=== PATIENT | male | born 1960 | race Asian ===

== ENCOUNTER 2016-09-07 07:53 | Inpatient (IN) | payer BC ==
[~2016-09-07] VITALS: Ht 177.8 cm; Wt 77.1 kg
[2016-09-07] MEDS ORDERED: ASPIRIN 81 MG TAB.CHEW ONE (08:14)
[2016-09-07 08:20] LABS: BASOPHILS % (AUTO) 0.3 % (0.0-2.0); DIFF TOTAL % 100 %; EOSINOPHILS % (AUTO) 0.1 % (0.0-6.0); HEMATOCRIT 45 % (39-51); LYMPHOCYTES # (AUTO) 3.3 /CMM (0.8-4.8); LYMPHOCYTES % (AUTO) 25.2 % (20.0-44.0); MEAN CORPUSCULAR HEMOGLOBIN 30 PG (26.0-33.0); MEAN CORPUSCULAR HGB CONC 34 g/dl (31.0-36.0); MEAN CORPUSCULAR VOLUME 90 fL (80-96); MONOCYTES # (AUTO) 1.1 /CMM (0.1-1.30); MONOCYTES % (AUTO) 8.5 % (2.0-12.0); NEUTROPHILS # (AUTO) 8.7 /CMM (1.8-8.9); NEUTROPHILS % (AUTO) 65.9 % (43.0-81.0); RED BLOOD CELL COUNT(AUTO) 4.96 MIL/uL (4.5-6.0); WHITE BLOOD COUNT (AUTO) 13.2 K/uL (4.3-11.0)
[2016-09-07] MEDS ORDERED: ASPIRIN 81 MG TAB.CHEW PO ONE (08:30)
[2016-09-07] MEDS ORDERED: LIDOCAINE VISCOUS 2% UD 15 ML UDC MM ONE (08:30)
[2016-09-07] MEDS ORDERED: MAG HYDROX/AL HYDROX/SIMETH 30 ML UDC PO ONE (08:30)
[2016-09-07 08:34] LABS: INR 0.95 (0.87-1.13); PROTHROMBIN TIME 10.3 SECS (9.5-12.7)
[2016-09-07 08:35] LABS: CALCIUM, SERUM 8.8 mg/dL (8.5-10.1)
[2016-09-07 08:40] LABS: ALBUMIN 3.8 g/dL (3.4-5.0); BILIRUBIN,DIRECT 0.1 mg/dL (0.0-0.2); BILIRUBIN,TOTAL 0.4 mg/dL (0.2-1.0); INDIRECT BILIRUBIN 0.3 mg/dL (0.0-1.1); TOTAL PROTEIN, SERUM 6.9 g/dL (6.4-8.2)
[2016-09-07 08:42] LABS: TROPONIN I 0.052 ng/mL (0.00-0.056)
[2016-09-07 08:54] LABS: PLATELET COUNT (AUTO) 175 /CMM (150-450)
[2016-09-07 08:57] LABS: BAND % (MANUAL) 3 % (0.0-5.0); LYMPHOCYTES % (MANUAL) 27 % (16-48); PLATELET ESTIMATE PLATELET CLUMPS SEEN
[2016-09-07] MEDS ORDERED: MARA150T PO (09:16)
[2016-09-07] MEDS ORDERED: RALT400T PO (09:16)
[2016-09-07] MEDS ORDERED: MELO-264 PO (09:16)
[2016-09-07] MEDS ORDERED: RITO100T PO (09:16)
[2016-09-07] MEDS ORDERED: DARU600T4 PO (09:16)
[2016-09-07] MEDS ORDERED: NITROGLYCERIN 0.4 MG/TAB BOTTLE ONE (10:25)
[2016-09-07] MEDS ORDERED: NITROGLYCERIN 0.4 MG/TAB BOTTLE SL ONE (10:30)
[2016-09-07] MEDS ORDERED: HYDROCODONE/APAP 5/325MG 1 EACH TABLET PO PRN (11:30)
[2016-09-07] MEDS ORDERED: MAG HYDROX/AL HYDROX/SIMETH 30 ML UDC PO PRN (11:30)
[2016-09-07] MEDS ORDERED: ACETAMINOPHEN 325 MG TABLET PO PRN (11:30)
[2016-09-07] MEDS ORDERED: LORAZEPAM 1 MG TABLET PO PRN (11:30)
[2016-09-07] MEDS ORDERED: Z GUARD REMEDY 2 OZ OINT TP PRN (11:30)
[2016-09-07] MEDS ORDERED: MAGNESIUM HYDROXIDE 30 ML UDC PO PRN (11:30)
[2016-09-07] MEDS ORDERED: NITROGLYCERIN 0.4 MG/TAB BOTTLE SL PRN (11:30)
[2016-09-07] MEDS ORDERED: SODIUM CHLORIDE IJ SCH (11:30)
[2016-09-07] MEDS ORDERED: ZOLPIDEM TARTRATE 5 MG TABLET PO PRN (11:30)
[2016-09-07] MEDS ORDERED: ONDANSETRON HCL/PF 4 MG/2 ML VIAL IVP PRN (11:30)
[2016-09-07] MEDS ORDERED: DOCUSATE SODIUM 100 MG CAPSULE PO PRN (11:30)
[2016-09-07 12:00] VITALS: BP 129/76
[2016-09-07] MEDS ORDERED: IV SET PRIMARY PUMP SET 1 EA INFUS.SET MC ONE (15:45)
[2016-09-07 15:52] VITALS: BP 119/74
[2016-09-07 16:00] VITALS: BP 119/74
[2016-09-07] MEDS: IV NS 0.9% 1,000 ML IV PRN (16:02)
[2016-09-07] MEDS: RITONAVIR 100 MG CAPSULE PO SCH (18:18)
[2016-09-07] MEDS: RALTEGRAVIR POTASSIUM 400 MG TABLET PO SCH (18:18)
[2016-09-07 21:09] VITALS: BP 115/69
[2016-09-08 00:32] VITALS: BP 119/71
[2016-09-08 04:12] VITALS: BP 114/80
[2016-09-08] MEDS: IV NS 0.9% 1,000 ML IV PRN (04:56)
[2016-09-08 06:57] VITALS: BP 135/58
[2016-09-08] MEDS ORDERED: PANTOPRAZOLE 40 MG TABLET.DR PO SCH (07:30)
[2016-09-08 08:00] VITALS: BP 135/58
[2016-09-08 08:19] LABS: CALCIUM, SERUM 8.2 mg/dL (8.5-10.1); CREATININE 0.9 mg/dL (0.6-1.3); PHOSPHORUS 3.7 mg/dL (2.5-4.9); POTASSIUM 4.2 mmol/L (3.5-5.1)
[2016-09-08] MEDS ORDERED: MELOXICAM 7.5 MG TABLET PO SCH (09:00)
[2016-09-08] MEDS ORDERED: ASPIRIN 81 MG TAB.CHEW PO SCH (09:00)
[2016-09-08 09:48] LABS: BASOPHILS % (AUTO) 0.3 % (0.0-2.0); DIFF TOTAL % 100 %; EOSINOPHILS # (AUTO) 0.1 /CMM (0.0-0.7); EOSINOPHILS % (AUTO) 0.5 % (0.0-6.0); HEMATOCRIT 47 % (39-51); HEMOGLOBIN 15.4 g/dL (13.5-17.5); LYMPHOCYTES # (AUTO) 3.9 /CMM (0.8-4.8); LYMPHOCYTES % (AUTO) 31.6 % (20.0-44.0); MEAN CORPUSCULAR HEMOGLOBIN 30 PG (26.0-33.0); MEAN CORPUSCULAR HGB CONC 33 g/dl (31.0-36.0); MEAN CORPUSCULAR VOLUME 91 fL (80-96); MONOCYTES % (AUTO) 8.1 % (2.0-12.0); NEUTROPHILS # (AUTO) 7.4 /CMM (1.8-8.9); NEUTROPHILS % (AUTO) 59.5 % (43.0-81.0); RED BLOOD CELL COUNT(AUTO) 5.17 MIL/uL (4.5-6.0); WHITE BLOOD COUNT (AUTO) 12.4 K/uL (4.3-11.0)
[2016-09-08 10:25] LABS: PLATELET COUNT (AUTO) 94 /CMM (150-450)
[2016-09-08] MEDS ORDERED: CT SWABBABLE VALVE TRANS SET 1 EA INFUS.SET MC ONE (10:26)
[2016-09-08] MEDS ORDERED: IV NS 0.9% 250 ML IV ONE (10:26)
[2016-09-08] MEDS ORDERED: IOHEXOL-350 100 ML VIAL IV ONE (10:26)
[2016-09-08 10:53] LABS: LYMPHOCYTES % (MANUAL) 40 % (16-48)
[2016-09-08 10:56] LABS: PLATELET ESTIMATE PLATELET CLUMPS SEEN
[2016-09-08] MEDS ORDERED: NITROGLYCERIN 4.9 GM SPRAY ONE (11:43)
[2016-09-08 12:00] VITALS: BP 138/84
[2016-09-08] MEDS: RITONAVIR 100 MG CAPSULE PO SCH ×2 (12:30→16:46)
[2016-09-08] MEDS: RALTEGRAVIR POTASSIUM 400 MG TABLET PO SCH ×2 (12:36→16:46)
[2016-09-08 16:00] VITALS: BP 128/79
[2016-09-08] MEDS ORDERED: DARUNAVIR ETHANOLATE 600 MG PO SCH (16:00)
== END 2016-09-08 18:00 | disposition home or self-care (01) | DRG 392 ==
LOC: ER 07:55 → TELE 10:26 → MED 09-08 14:31
PROVIDERS: ADMIT Internal Medicine; ATTEND Internal Medicine
DX: K21.9 Gastro-esophageal reflux disease without esophagitis (principal); D72.829 Elevated white blood cell count, unspecified; Z87.891 Personal history of nicotine dependence
CPT/HCPCS: 36415; 71010-TC; 75574; 80048-TC; 80061-TC; 80076-TC; 83735-TC; 84100-TC; 84484-TC; 85025-TC; 85730-TC; 87081-TC; 93307-TC; A4606; A6402; J7030; J7050; Q9967; Z7610

== ENCOUNTER 2017-01-28 07:56 | Inpatient (IN) | payer BC ==
[~2017-01-28] VITALS: Ht 177.8 cm; Wt 79.4 kg
[~2017-01-28 07:56] MED LIST: DARU600T4 PO; MARA150T PO; MELO-264 PO; RALT400T PO; RITO100T PO
[2017-01-28] MEDS ORDERED: ONDANSETRON HCL/PF 4 MG/2 ML VIAL ONE (08:18)
[2017-01-28] MEDS ORDERED: MORPHINE SULFATE INJ 10 MG/ML DISP.SYRIN ONE (08:19)
--- NOTE | 2017-01-28 08:20 | NUR ---
PATIENT PRESENT TO ER C/O SEVERE LOWER MEDIAL ABDOMINAL PAIN. PATIENT IS A/OX 4, BREATHING EVEN AND UNLABORED. NO SOB. VITALS STABLE. SAFETY AND COMFORT MEASURES IN PLACE. AWAITING MD ORDERS.
[2017-01-28 08:22] LABS: APPEARANCE,URINE SL CLOUDY (CLEAR); BILIRUBIN,URINE NEGATIVE (NEGATIVE); BLOOD, URINE NEGATIVE Ery/uL (NEGATIVE); COLOR,URINE YELLOW (YELLOW); KETONES,URINE NEGATIVE (NEGATIVE); LEUKOCYTE ESTERASE ,URINE NEGATIVE (NEGATIVE); NITRITE, URINE NEGATIVE (NEGATIVE); PROTEIN,URINE NEGATIVE (NEGATIVE); UGLUCOSE NEGATIVE (NEGATIVE); UROBILINOGEN,URINE 0.2 EU/dL (0.2)
[2017-01-28 08:24] LABS: BASOPHILS % (AUTO) 0.2 % (0.0-2.0); EOSINOPHILS % (AUTO) 0.2 % (0.0-6.0); HEMATOCRIT 48 % (39-51); HEMOGLOBIN 16.1 g/dL (13.5-17.5); LYMPHOCYTES # (AUTO) 2.8 /CMM (0.8-4.8); LYMPHOCYTES % (AUTO) 18.1 % (20.0-44.0); MEAN CORPUSCULAR HEMOGLOBIN 31 PG (26.0-33.0); MEAN CORPUSCULAR HGB CONC 34 g/dl (31.0-36.0); MEAN CORPUSCULAR VOLUME 92 fL (80-96); MONOCYTES # (AUTO) 0.5 /CMM (0.1-1.30); MONOCYTES % (AUTO) 3.1 % (2.0-12.0); NEUTROPHILS # (AUTO) 12.2 /CMM (1.8-8.9); NEUTROPHILS % (AUTO) 78.4 % (43.0-81.0); PLATELET COUNT (AUTO) 254 /CMM (150-450); RDW COEFFICIENT OF VARIATION 12.9 (11.5-15.0); RED BLOOD CELL COUNT(AUTO) 5.23 MIL/uL (4.5-6.0); WHITE BLOOD COUNT (AUTO) 15.6 K/uL (4.3-11.0)
--- NOTE | 2017-01-28 08:25 | NUR ---
NEW IV STARTED ON LEFT AC, 20 G. BLOOD DRAWN AND SENT TO LAB.
--- NOTE | 2017-01-28 08:28 | NUR ---
PATIENT TAKEN TO CT VIA STRETCHER.
[2017-01-28 08:30] LABS: CALCIUM, SERUM 9.1 mg/dL (8.5-10.1); CREATININE 1.1 mg/dL (0.6-1.3)
[2017-01-28] MEDS ORDERED: MORPHINE SULFATE INJ 2 MG/ML DISP.SYRIN IV ONE (08:30)
[2017-01-28] MEDS ORDERED: IV NS 0.9% 1,000 ML BAG IV ONE (08:30)
[2017-01-28] MEDS ORDERED: ONDANSETRON HCL/PF 4 MG/2 ML VIAL IVP ONE (08:30)
--- NOTE | 2017-01-28 08:32 | NUR ---
PATIENT RETURNED FROM CT.
--- NOTE | 2017-01-28 09:07 | NUR ---
dr mariel enriquez paged for surgical consult
--- NOTE | 2017-01-28 09:22 | NUR ---
panel gauge controller paged
[2017-01-28] MEDS ORDERED: MIDAZOLAM HCL 2 MG/2ML VIAL ONE (09:23)
[2017-01-28] MEDS ORDERED: MIDAZOLAM HCL 2 MG/2ML VIAL IV ONE (09:30)
--- NOTE | 2017-01-28 09:42 | NUR ---
14 FR NG tube inserted through the left nares correct positioning varified by auscultation and x-ray pending. Pt breathing normally and speaking in full sentences immediately after insertion. Vitals stable. Per MD connect to LIS once placement confirmed by KUB.
[2017-01-28] MEDS ORDERED: DIATR MEGLU/DIATRIZOATE SODIUM 30 ML BOTTLE (GASTROGRAPHIN) ONE (09:53)
--- NOTE | 2017-01-28 10:00 | NUR ---
MAIL HANDLER ASSISTANT AT BEDSIDE.
--- NOTE | 2017-01-28 10:15 | NUR ---
REPORT GIVEN TO MARCELINO PARKINSON FOR FELIBERTO.
--- NOTE | 2017-01-28 10:20 | NUR ---
KUB CONFIRMED POSITIVE PLACEMENT OF NG TUBE. PATIENT TRANSPORTED TO FLOOR VIA STRETCHER WITH EMT.
[2017-01-28 10:30] VITALS: BP 134/82
--- NOTE | 2017-01-28 10:50 | NUR ---
MS RN OPENING NOTES RECEIVED PATIENT FROM ER VIA GURNEY. PATIENT ALERT AND ORIENTED X 4. PATIENT AMBULATORY. NO ACUTE DISTRESS, NO SOB NOTED. DENIES PAIN AT THIS TIME. KEPT PATIENT SAFE. BELONGINGS ON BEDSIDE. BED IN LOW POSITION, SIDERAILS UP X2. CALL LIGHT WITHIN REACH. WILL CONTINUE TO MONITOR ACCORDINGLY.
[2017-01-28 11:00] VITALS: BP 134/82
[2017-01-28 11:16] VITALS: BP 134/82
[2017-01-28] MEDS ORDERED: ACETAMINOPHEN 650 MG/SUPP.RECT RC PRN (11:30)
[2017-01-28] MEDS ORDERED: ONDANSETRON HCL/PF 4 MG/2 ML VIAL IVP PRN (11:30)
[2017-01-28] MEDS ORDERED: MORPHINE SULFATE INJ 2 MG/ML DISP.SYRIN IV PRN (11:30)
[2017-01-28] MEDS: IV NS 0.9% 1,000 ML IV PRN (12:40)
[2017-01-28] MEDS: ENOXAPARIN SODIUM 40 MG/0.4 ML DISP.SYRIN SQ SCH (12:43)
[2017-01-28] MEDS: FAMOTIDINE/PF INJ 20 MG/2 ML VIAL IV SCH ×2 (15:21→21:11)
[2017-01-28 15:30] VITALS: BP 163/92
[2017-01-28 16:00] VITALS: BP 138/64
--- NOTE | 2017-01-28 16:00 | NUR ---
RN NOTES PATIENT WALKED AROUND THE UNIT, REPORTED THAT HE PASSED GAS A COUPLE OF TIMES. PATIENT TOLERATED WALKING WELL.
--- NOTE | 2017-01-28 18:50 | NUR ---
RN CLOSING NOTES PATIENT IN BED RESTING. NO ACUTE DISTRESS, NO SOB NOTED, DENIES ANY PAIN OR DISCOMFORT. ALL NEEDS ATTENDED AND PROVIDED. KEPT PATIENT SAFE. BED IN LOW POSITION, CALL LIGHT WITHIN REACH. ENDORSED TO BITUMINOUS PAVING MACHINE OPERATOR RN FOR CONTINUITY OF CARE.
--- NOTE | 2017-01-28 19:00 | NUR ---
SPIKE MAKER NOTES PT RECEIVED IN BED, NO S/S OF RESPIRATORY DISTRESS OR SOB. IV SITE INTACT WITH NO S/S OF INFILTRATION NOTED. SAFE ENVIRONMENT PROVIDED FREE OF CLUTTERS .BED IN LOCKED, LOW POSITION. CALL LIGHT WITHIN EASY REACH. WILL CONTINUE TO MONITOR.
[2017-01-28 20:00] VITALS: BP 135/82
[2017-01-29] MEDS: IV NS 0.9% 1,000 ML IV PRN (04:53)
[2017-01-29 06:20] LABS: BASOPHILS % (AUTO) 0.4 % (0.0-2.0); EOSINOPHILS # (AUTO) 0.1 /CMM (0.0-0.7); EOSINOPHILS % (AUTO) 1.4 % (0.0-6.0); HEMATOCRIT 42 % (39-51); HEMOGLOBIN 14.2 g/dL (13.5-17.5); LYMPHOCYTES # (AUTO) 1.8 /CMM (0.8-4.8); LYMPHOCYTES % (AUTO) 28.9 % (20.0-44.0); MEAN CORPUSCULAR HEMOGLOBIN 31 PG (26.0-33.0); MEAN CORPUSCULAR HGB CONC 34 g/dl (31.0-36.0); MEAN CORPUSCULAR VOLUME 92 fL (80-96); MONOCYTES # (AUTO) 0.5 /CMM (0.1-1.30); MONOCYTES % (AUTO) 8.3 % (2.0-12.0); NEUTROPHILS # (AUTO) 3.8 /CMM (1.8-8.9); PLATELET COUNT (AUTO) 220 /CMM (150-450); RDW COEFFICIENT OF VARIATION 12.5 (11.5-15.0); RED BLOOD CELL COUNT(AUTO) 4.57 MIL/uL (4.5-6.0); WHITE BLOOD COUNT (AUTO) 6.3 K/uL (4.3-11.0)
[2017-01-29 06:47] LABS: CALCIUM, SERUM 8.2 mg/dL (8.5-10.1); CREATININE 0.9 mg/dL (0.6-1.3); MAGNESIUM 2.1 mg/dL (1.8-2.4); PHOSPHORUS 3.4 mg/dL (2.5-4.9)
--- NOTE | 2017-01-29 06:51 | NUR ---
MS RN CLOSING NOTES PATIENT COMFORTABLY ASLEEP AND EASILY AWAKEN, HEAD OF BED ELEVATED FOR BETTER LUNG EXPANSION. IV HYDRATION ONGOING NS AT 75 CC, IV SITE NO S/S OF INFILTRATED, MAINTAINS NPO PATIENT DENIES PAIN AT THIS TIME. ON NG TUBE FOR DECOMPRESSION. TOLERATING ROOM AIR 02 SAT 98%. RESPIRATIONS EVEN AND UNLABORED. NO S/S OF ACUTE DISTRESS, NO SOB, AFEBRILE, ALL NURSING CARE NEEDS PROVIDED AND RENDERED, KEPT CLEAN AND DRY AND COMFORTABLE, GOOD SKIN CARE PROVIDED. ALL DUE MEDS WAS GIVEN TOLERATED. FREQUENT VISUAL CHECK DONE FOR SAFETY EVERY 2 HOURS. SAFE HAZARD FREE ENVIRONMENT PROVIDED. CALL LIGHT WITHIN EASY TO REACH, ON LOW BED AT ALL TIMES TO ENSURE SAFETY, WILL ENDORSE TO THE NEXT SHIFT CONTINUE PLAN OF CARE.
[2017-01-29 08:00] VITALS: BP 134/77
--- NOTE | 2017-01-29 08:12 | NUR ---
RN NOTE RECEIVED PT AWAKE IN BED. A & O X4. NO S/S OF PAIN, SOB OR DISTRESS. NG TUBE IN PLACE FOR DECOMPRESSION. IV ACCESS LOCATED ON LAC, 20G, RUNNING NS AT 75 ML/HR. WILL CONTINUE TO MONITOR.
[2017-01-29] MEDS: FAMOTIDINE/PF INJ 20 MG/2 ML VIAL IV SCH (08:34)
[2017-01-29] MEDS: ENOXAPARIN SODIUM 40 MG/0.4 ML DISP.SYRIN SQ SCH (08:35)
[2017-01-29] MEDS ORDERED: DIATR MEGLU/DIATRIZOATE SODIUM 120 ML BOTTLE (GASTROGRAPHIN) ONE (08:39)
[2017-01-29] MEDS ORDERED: BARIUM SULFATE 98% 135 ML SUSP.RECON PO ONE (08:40)
[2017-01-29] MEDS ORDERED: PANTOPRAZOLE 40 MG VIAL IV SCH (09:00)
--- NOTE | 2017-01-29 15:33 | NUR ---
RN NOTE PT TAKEN DOWN TO RADIOLOGY FOR XR OF SMALL SMALL BOWEL. NG TUBE REMAINS IN INTERMITTENT SUCTION FOR DECOMPRESSION AND PT REMAINS NPO.
[2017-01-29 16:00] VITALS: BP 148/89
--- NOTE | 2017-01-29 18:07 | NUR ---
DISCHARGE NOTE PT DISCHARGED AGAINST MEDICAL ADVICE. RISKS AND BENEFITS OF LEAVING AMA EXPLAINED, PT STILL INSISTS ON LEAVING. PT ADVISED TO FOLLOW UP WITH PRIMARY PHYSICIAN.
== END 2017-01-29 17:57 | disposition left against medical advice (07) | DRG 388 ==
LOC: ER 07:58 → MED 10:04
PROVIDERS: ADMIT Internal Medicine; ATTEND Internal Medicine
DX: K56.60 Unspecified intestinal obstruction (principal); N17.0 Acute kidney failure with tubular necrosis; R65.11 Systemic inflammatory response syndrome (SIRS) of non-infectious origin with acute organ dysfunction; E46 Unspecified protein-calorie malnutrition; D72.829 Elevated white blood cell count, unspecified; I25.2 Old myocardial infarction; K21.9 Gastro-esophageal reflux disease without esophagitis; E83.51 Hypocalcemia; Z79.899 Other long term (current) drug therapy; Z68.25 Body mass index [BMI] 25.0-25.9, adult
CPT/HCPCS: 36415; 71010-TC; 72128-TC; 74000-TC; 74250-TC; 80048-TC; 80061-TC; 81000-TC; 83735-TC; 84100-TC; 85025-TC; 87081-TC; A4606; J1650; J2250; J2270; J2405; J3490; J7030; Q9963; Z7610

== ENCOUNTER 2017-10-04 22:07 | Emergency (ER) | payer BC ==
[~2017-10-04] VITALS: Ht 170.2 cm; Wt 81.2 kg
[~2017-10-04 22:07] MED LIST changes: +DARU600T2 PO; -DARU600T4 PO; +MELO-107 PO; -MELO-264 PO
--- NOTE | 2017-10-04 22:20 | NUR ---
PT BB SELF FROM HOME WITH C/O OF INTERMITTENT CP SINCE 0700 TODAY NONE RADIATING. PT STATES "I CHECKED MY BP AT HOME AND IT WAS 200/100 AT HOME". PT IS AAOX4. SKIN WNL. RESP EVEN AND UNLABORED. NO S/S OF ACUTE DISTRESS NOTED. PT GOWNED AND PLACED ON MONITOR AND POX. AWAITING MD FOR EVAL.
[2017-10-04] MEDS ORDERED: ASPIRIN 325 MG TABLET PO ONE (22:30)
--- NOTE | 2017-10-04 22:32 | NUR ---
EMT BEDSIDE FOR EKG
[2017-10-04] MEDS ORDERED: ASPIRIN 325 MG TABLET ONE (22:35)
--- NOTE | 2017-10-04 22:45 | NUR ---
PHLEBOTOMY BEDSIDE FOR BLOOD SPECIMEN COLLECTION.
[2017-10-04 22:52] LABS: BASOPHILS % (AUTO) 0.3 % (0.0-2.0); EOSINOPHILS % (AUTO) 0.3 % (0.0-6.0); HEMATOCRIT 40 % (39-51); HEMOGLOBIN 13.8 g/dL (13.5-17.5); LYMPHOCYTES # (AUTO) 1.2 /CMM (0.8-4.8); MEAN CORPUSCULAR HGB CONC 35 g/dl (31.0-36.0); MEAN CORPUSCULAR VOLUME 91 fL (80-96); MONOCYTES # (AUTO) 0.4 /CMM (0.1-1.30); MONOCYTES % (AUTO) 5.1 % (2.0-12.0); NEUTROPHILS # (AUTO) 5.4 /CMM (1.8-8.9); NEUTROPHILS % (AUTO) 77.3 % (43.0-81.0); PLATELET COUNT (AUTO) 233 /CMM (150-450); RDW COEFFICIENT OF VARIATION 12.8 (11.5-15.0); RED BLOOD CELL COUNT(AUTO) 4.42 MIL/uL (4.5-6.0)
[2017-10-04 23:02] LABS: CALCIUM, SERUM 8.3 mg/dL (8.5-10.1); CREATININE 1.2 mg/dL (0.6-1.3); POTASSIUM 4.3 mmol/L (3.5-5.1)
[2017-10-04 23:10] LABS: TROPONIN I 0.028 ng/mL (0.00-0.056)
[2017-10-05 02:03] VITALS: BP 128/79
== END 2017-10-05 02:06 | disposition home or self-care (01) ==
LOC: ER 22:09
DX: R07.89 Other chest pain (principal); I10 Essential (primary) hypertension; Z88.2 Allergy status to sulfonamides; Z98.890 Other specified postprocedural states; Z79.82 Long term (current) use of aspirin
CPT/HCPCS: 36415 ×2; 71046; 80048; 84484 ×2; 85025; 93005 ×2; 99285; A4606; Z7610

== ENCOUNTER 2018-02-13 06:22 | Inpatient (IN) | payer BC ==
[~2018-02-13] VITALS: Ht 177.8 cm; Wt 78.0 kg
--- NOTE | 2018-02-13 06:36 | NUR ---
PT AMBULATORY TO ER BED 2. BIB SELF FROM HOME C/O CP X 2 HOURS. DENIES SOB. REHAB MANAGER X2 SL NITRO. PT PLACED ON RN EMERGENCY ROOM. VSS/RESP EVEN UNLABORED/NAD NOTED/SKIN WARM AND DRY/AFEBRILE/DENIES N-V-D/AOX4. MD AT BEDSIDE FOR EVAL.
--- NOTE | 2018-02-13 06:39 | NUR ---
EMT AT BEDSIDE FOR EKG.
[2018-02-13] MEDS ORDERED: ASPIRIN 81 MG TAB.CHEW ONE (06:44)
--- NOTE | 2018-02-13 06:46 | NUR ---
CALLED [facility] AND PRESENTED CASE ORDERED BY DR. CARTER.
--- NOTE | 2018-02-13 06:47 | NUR ---
DR. HUGHES AT [facility] ER SPEAKING TO DR. CARTER.
--- NOTE | 2018-02-13 06:48 | NUR ---
JUS FAXED TO [facility] REQUESTED AT [phone]
--- NOTE | 2018-02-13 06:50 | NUR ---
18G IV TO R AC X 1 ATTEMPT USING ASEPTIC TECH, BLOOD HANDED OVER TO THE LAB AT BEDSIDE. IV FLUSHES EASILY WITH NS, NO S/S INFILTRATION NOTED AT THIS TIME.
--- NOTE | 2018-02-13 06:57 | NUR ---
PER DR. CARTER AFTER SPEAKING TO THE SWITCHBOARD OPERATOR RECEPTIONIST AT [facility] "DR. ARTEAGA SAID OUR SWITCHBOARD OPERATOR RECEPTIONIST SHOULD CONTINUE WORKING UP THE PT UNTIL MORE DEFINITIVE ST ELEVATIONS APPEAR".
--- NOTE | 2018-02-13 06:58 | NUR ---
XRAY AT BEDSIDE.
[2018-02-13] MEDS ORDERED: ASPIRIN 81 MG TAB.CHEW PO ONE (07:00)
[2018-02-13] MEDS ORDERED: IV NS 0.9% 1,000 ML BAG IV ONE (07:00)
--- NOTE | 2018-02-13 07:00 | NUR ---
CALLED [facility] AND SPOKE TO FREDDY; FAXED EKG AND FACESHEET REQUESTED. "I WILL PRESENT IT TO THE CHEMICAL LIBRARIAN MELODY"
[2018-02-13 07:02] LABS: BASOPHILS % (AUTO) 0.5 % (0.0-2.0); EOSINOPHILS % (AUTO) 1.7 % (0.0-6.0); HEMATOCRIT 42 % (39-51); HEMOGLOBIN 13.8 g/dL (13.5-17.5); LYMPHOCYTES # (AUTO) 1.5 /CMM (0.8-4.8); LYMPHOCYTES % (AUTO) 25.2 % (20.0-44.0); MEAN CORPUSCULAR HEMOGLOBIN 31 PG (26.0-33.0); MEAN CORPUSCULAR HGB CONC 33 g/dl (31.0-36.0); MEAN CORPUSCULAR VOLUME 93 fL (80-96); MONOCYTES # (AUTO) 0.5 /CMM (0.1-1.30); MONOCYTES % (AUTO) 7.7 % (2.0-12.0); NEUTROPHILS # (AUTO) 3.8 /CMM (1.8-8.9); NEUTROPHILS % (AUTO) 64.9 % (43.0-81.0); PLATELET COUNT (AUTO) 227 /CMM (150-450); RDW COEFFICIENT OF VARIATION 13.3 (11.5-15.0); RED BLOOD CELL COUNT(AUTO) 4.46 MIL/uL (4.5-6.0); WHITE BLOOD COUNT (AUTO) 5.9 K/uL (4.3-11.0)
[2018-02-13 07:13] LABS: CALCIUM, SERUM 8.2 mg/dL (8.5-10.1); CREATININE 1.1 mg/dL (0.6-1.3); POTASSIUM 4.1 mmol/L (3.5-5.1)
--- NOTE | 2018-02-13 07:13 | NUR ---
URINE SPECIMEN OBTAINED AND SENT TO THE LAB.
--- NOTE | 2018-02-13 07:14 | NUR ---
ENDORSED TO IGGY PANCHAL FOR FELIBERTO.
--- NOTE | 2018-02-13 07:17 | NUR ---
RECEIVED CALL FROM [facility] TRANSFER LINE AT [facility] AND STATED "THE PACKER INSPECTOR DR. DIAZ SAYS IT'S NOT A STEMI AND THEREFORE WE WILL NOT TRANSFER THE PT". DR. CARTER NOTIFIED.
[2018-02-13 07:21] LABS: TROPONIN I 0.026 ng/mL (0.00-0.056)
--- NOTE | 2018-02-13 07:21 | NUR ---
OFFICE AUTOMATION CLERK DR. JANINE URIAS.
[2018-02-13 07:27] LABS: CREATINE KINASE MB 1.9 ng/mL (0-3.6)
[2018-02-13 07:35] LABS: INR 0.9 (0.87-1.13)
--- NOTE | 2018-02-13 07:36 | NUR ---
CALLED KATHRYN POUCH MAKER FOR TELE BED.
[2018-02-13 08:00] VITALS: BP 120/77
[2018-02-13] MEDS ORDERED: MAG HYDROX/AL HYDROX/SIMETH 30 ML UDC PO PRN (08:30)
[2018-02-13] MEDS ORDERED: Z GUARD REMEDY 2 OZ OINT TP PRN (08:30)
[2018-02-13] MEDS ORDERED: MAGNESIUM HYDROXIDE 30 ML UDC PO PRN (08:30)
[2018-02-13] MEDS ORDERED: ACETAMINOPHEN 325 MG TABLET PO PRN (08:30)
[2018-02-13] MEDS ORDERED: ONDANSETRON HCL/PF 4 MG/2 ML VIAL IVP PRN (08:30)
--- NOTE | 2018-02-13 08:51 | NUR ---
REPORT GIVEN TO IGGY POLLARD FOR FELIBERTO TELE [phone]
[2018-02-13] MEDS ORDERED: DARUNAVIR ETHANOLATE 600 MG PO SCH ×2 (09:00→17:00)
[2018-02-13] MEDS ORDERED: IV NS 0.9% 1,000 ML BAG IV SCH (09:00)
[2018-02-13] MEDS ORDERED: MARAVIROC 150 MG PO SCH (09:00)
--- NOTE | 2018-02-13 09:00 | NUR ---
HEALTH CARE AIDECALL PERSON NOTE PT ARRIVED VIA GURNEY ACCOMPANIED BY ER STAFF IN STABLE CONDITION. PT IS AMBULATORY AND ABLE TO AMBULATE FROM GURNEY TO BED. PT IS A/O X4, AFEBRILE. RESPIRATIONS ARE EVEN AND UNLABORED, NOT IN ANY ACUTE DISTRESS NOTED. PUPILS ARE REACTIVE TO LIGHT. BILATERAL HAND CUSTOMER RELATIONSHIP SPECIALIST ARE STRONG AND EQUAL. PT DENIES ANY CHEST PAIN AT THIS TIME, NO C/O SOB,N/V NOTED. IV SITE TO RAC G18 INTACT, NO INFILTRATION NOTED. DRESSING KEPT CLEAN AND DRY. ABDOMEN IS SOFT AND NONDISNTEDED. DENIES ANY BLADDER DISCOMFORT. NO SKIN ISSUES NOTED. PT WAS SEEN AND EXAMINED BY DR. GARCIA W/ ORDERS NOTED AND CARRIED OUT. SAFETY MEASURES ARE IN PLACE. INSTRUCTED PT TO USE CALL LIGHT WHEN ASSISTANCE IS NEEDED, CALL LIGHT IS LEFT WITHIN REACH. WILL CONTINUE TO MONITOR THROUGHOUT SHIFT FOR CONTINUITY OF CARE.
--- NOTE | 2018-02-13 09:30 | NUR ---
MS PARKINSON NOTES PER DR. GARCIA TO ORDER VIRAL LOAD FOR AM. CALLED LAB AND SPOKE W/ SHERYL ON EXACTLY HOW TO WRITE VIRAL LOAD ORDER IT CANT BE LOCATED. PER SHERYL, SHE WILL CALL BACK. Addendum: 02/13/18 at 1222 by CAIO GUTIERREZ RN *LEROY PARKINSON NOTES
--- NOTE | 2018-02-13 10:28 | NUR ---
WELL SERVICE FLOOR WORKER NOTES PT WISHES TO BE DNR/DNI. WHEN ASKED AND EXPLAINED, PT STATED "I DO NOT WANT TO BE RESUSCITATED AND NO TUBINGS PLEASE." DR. GARCIA MADE AWARE.
[2018-02-13] MEDS: RITONAVIR 100 MG CAPSULE PO SCH ×2 (11:42→16:29)
[2018-02-13] MEDS: RALTEGRAVIR POTASSIUM 400 MG TABLET PO SCH ×2 (11:42→16:28)
[2018-02-13] MEDS: IV NS 0.9% 1,000 ML IV PRN (11:57)
--- NOTE | 2018-02-13 12:54 | NUR ---
PHOTO EDITOR NOTES VIRAL LOAD UNDER HIV RNA, REAL TIME PCR ORDERED FOR AM. NOTED AND CARRIED OUT. DR. GARCIA MADE AWARE.
[2018-02-13 16:00] VITALS: BP 125/71
--- NOTE | 2018-02-13 18:31 | NUR ---
DRAW FURNACE TENDER CLOSING NOTES ALL DUE MEDS GIVEN, NEEDS MET AND RENDERED. PT IS A/O X4, AFEBRILE. RESPIRATIONS ARE EVEN AND UNLABORED, NOT IN ANY ACUTE DISTRESS NOTED. PT DENIES ANY CHEST PAIN, SOB, N/V. IV SITE INTACT, NO INFILTRATION NOTED. DRESSING KEPT CLEAN AND DRY. IV FLUIDS INFUSING AT 75ML/HR AND TOLERATING WELL. ENCOURAGED FLUIDS TOLERATED. SAFETY MEASURES ARE IN PLACE. CALL LIGHT IS LEFT WITHIN REACH. WILL ENDORSE TO NEXT SHIFT FOR CONTINUITY OF CARE.
[2018-02-13 20:00] VITALS: BP 134/82
--- NOTE | 2018-02-13 20:10 | NUR ---
HAZARDOUS MATERIAL SPECIALIST OPENING NOTE Patient was seen sitting upright in bed AAOx4, breathing on RA with no SOB, and no signs of acute distress. NS at 75ml/hr is running through the right AC with no signs of leaking or infiltration. Patient has no chest pain at this time. Patient was also educated on the possibility of a stress test tomorrow AM and was agreeable to being NPO after midnight. Patient has no immediate needs or concerns at this time. Bed is low/locked, two side rails up, and call hannah within reach. Will continue to monitor.
[2018-02-13] MEDS: ZOLPIDEM TARTRATE 5 MG TABLET PO PRN (22:44)
--- NOTE | 2018-02-13 22:45 | NUR ---
MS RN NOTE - Ambien Patient requested Ambien for sleep. 5mg PO Ambien given as ordered for prn use. Will continue to monitor.
[2018-02-14] VITALS: BP 118/71
[2018-02-14] MEDS: HYDROCODONE/APAP 5/325MG 1 EACH TABLET PO PRN ×2 (03:48→16:41)
--- NOTE | 2018-02-14 03:48 | NUR ---
TIRE SETTER NOTE - Boulder Patient requested Boulder for pain relief due to persistent headache that has lasted throughout the night. Patient rates pain at 6/10. 5/325mg of PO Boulder was given as ordered for prn use. Will continue to monitor.
[2018-02-14 04:00] VITALS: BP 150/89
[2018-02-14 04:30] VITALS: BP 150/89
--- NOTE | 2018-02-14 04:45 | NUR ---
CHAIN DYER NOTE - New IV Patient was complaining of pain at his IV site in the right AC. IV fluids were also not running smoothly; IV pump was often beeping due to "downstream occlusion". IV in right AC was removed; band-aid applied. No signs of redness or swelling. New IV was inserted in the left forearm, 22g. IV showed positive blood return and flushed well. IV fluids were reconnected.
--- NOTE | 2018-02-14 06:59 | NUR ---
HEAD OF SALES CLOSING NOTE Patient was seen in bed this morning AAOx4, breathing on RA with no SOB, and no signs of acute distress. Patient slept fairly well overnight with no complications. NS at 75ml/hr is running through the left FA IV with no signs of leaking or infiltration. Bed is low/locked, two side rails up, and call hannah is within reach. Patient remains in stable condition; telemonitor shows NSR. Patient care is endorsed to day shift nurse.
[2018-02-14 08:00] VITALS: BP 123/71
--- NOTE | 2018-02-14 08:00 | NUR ---
MS RN NOTES PATIENT IN BED RESTING NO SOB OR ACUTE DISTRESS NOTED. PATIENT NPO AWAITING FOR CARDIOLOGY CONSULT. PATIENT ALERT, ORIENTED X3 AMBULATORY. PERIPHERAL IV INTACT PATENT. BED IN LOW LOCKED POSITION. CALL LIGHT PETE WITHIN REACH. WILL CONTINUE TO MONITOR.
[2018-02-14 08:07] LABS: BASOPHILS % (AUTO) 0.5 % (0.0-2.0); EOSINOPHILS % (AUTO) 2.3 % (0.0-6.0); HEMATOCRIT 43 % (39-51); HEMOGLOBIN 14.1 g/dL (13.5-17.5); LYMPHOCYTES # (AUTO) 1.5 /CMM (0.8-4.8); LYMPHOCYTES % (AUTO) 25.7 % (20.0-44.0); MEAN CORPUSCULAR HEMOGLOBIN 31 PG (26.0-33.0); MEAN CORPUSCULAR HGB CONC 33 g/dl (31.0-36.0); MEAN CORPUSCULAR VOLUME 94 fL (80-96); MONOCYTES # (AUTO) 0.4 /CMM (0.1-1.30); NEUTROPHILS # (AUTO) 3.7 /CMM (1.8-8.9); NEUTROPHILS % (AUTO) 64.5 % (43.0-81.0); PLATELET COUNT (AUTO) 218 /CMM (150-450); RDW COEFFICIENT OF VARIATION 12.9 (11.5-15.0); RED BLOOD CELL COUNT(AUTO) 4.51 MIL/uL (4.5-6.0); WHITE BLOOD COUNT (AUTO) 5.8 K/uL (4.3-11.0)
[2018-02-14 08:19] LABS: CALCIUM, SERUM 8.4 mg/dL (8.5-10.1); CREATININE 0.9 mg/dL (0.6-1.3); MAGNESIUM 2.1 mg/dL (1.8-2.4); PHOSPHORUS 3.5 mg/dL (2.5-4.9)
[2018-02-14] MEDS ORDERED: IV NS 0.9% 1,000 ML BAG IV SCH (09:00)
[2018-02-14] MEDS: RITONAVIR 100 MG CAPSULE PO SCH ×2 (09:00→16:34)
[2018-02-14] MEDS: RALTEGRAVIR POTASSIUM 400 MG TABLET PO SCH ×2 (09:00→16:34)
--- NOTE | 2018-02-14 09:30 | NUR ---
MS RN NOTES PATIENT SEEN BY DR. LANG ORDERS FOR CTA, CONSENT OBTAINED RIGHT AC G18 IV STARTED. WAITING FOR RADIOLOGY TO LEADERSHIP PROGRAM ASSOCIATE PATIENT.
[2018-02-14] MEDS ORDERED: IOHEXOL-350 100 ML VIAL IV ONE (11:31)
[2018-02-14] MEDS ORDERED: IV NS 0.9% 250 ML IV ONE (11:31)
[2018-02-14] MEDS ORDERED: CT SWABBABLE VALVE TRANS SET 1 EA INFUS.SET MC ONE (11:31)
--- NOTE | 2018-02-14 12:10 | NUR ---
MS RN NOTES PATIENT RETURNED FROM RADIOLOGY TOLERATED PROCEDURE WELL. VS WNL. BP OF 131/86 PULSE 58 PATIENT ALLOWED TO EAT WILL CONTINUE TO MONITOR.
[2018-02-14 16:00] VITALS: BP 145/84
[2018-02-14] MEDS: IV NS 0.9% 1,000 ML IV PRN (16:34)
[2018-02-14] MEDS: ASPIRIN 81 MG TAB.CHEW PO SCH (17:43)
--- NOTE | 2018-02-14 19:00 | NUR ---
MS RN OPENING PATIENT IN BED NO DISTRESS OR SOB NOTED. PT DENIES CHEST PAIN. PATIENT WILL BE NPO AFTER MIDNIGHT AWAITING DUE TO CARDIAC CATH 02/15/18. PATIENT ALERT, ORIENTED X3 AND AMBULATORY. IV LINE INTACT AND PATENT. BED IN LOW LOCKED POSITION. CALL LIGHT WITHIN REACH. WILL CONTINUE TO MONITOR.
--- NOTE | 2018-02-14 19:20 | NUR ---
MS RN NOTES PATIENT IN BED RESTING NO SOB OR ACUTE DISTRESS. ALERT,ORIENTED X3 ALL DUE MEDICATIONS ADMINISTERED. ALL NEEDS MET WILL ENDORSE TO PM SHIFT FELIBERTO.
[2018-02-14 20:00] VITALS: BP 132/76
[2018-02-14] MEDS: ATORVASTATIN 10 MG TABLET PO SCH (21:06)
[2018-02-14] MEDS: METOPROLOL TARTRATE 25 MG TABLET PO SCH (21:07)
[2018-02-14] MEDS: ZOLPIDEM TARTRATE 5 MG TABLET PO PRN (22:16)
--- NOTE | 2018-02-15 07:25 | NUR ---
MS RN NOTES PATIENT RECEIVED RESTING INSIDE ROOM. AWAKE, ALERT AND ORIENTED X 4, VERBALLY RESPONSIVE AND RESPONDS TO VERBAL AND TACTILE STIMULI. BREATHING EVEN AND UNLABORED. NO SOB OR ACUTE DISTRESS NOTED AT THIS TIME. PATIENT CALM AND RELAXED. NO CHANGES IN LOC NOTED AT THIS TIME. IV INTACT AND PATENT. WILL CONTINUE TO MONITOR. BED LOCKED AND IN LOW POSITION. BILATERAL UPPER SIDE RAILS UP AND LOCKED. CALL LIGHT WITHIN EASY REACH
--- NOTE | 2018-02-15 07:26 | NUR ---
RN MS CLOSING NOTES PATIENT IN BED NO DISTRESS OR SOB NOTED. PATIENT NPO SINCE MIDNIGHT DUE TO CARDIAC CATH 02/15/18 AT [facility]. PATIENT ALERT, ORIENTED X3 AND AMBULATORY. IV LINE INTACT AND PATENT. BED IN LOW LOCKED POSITION. CALL LIGHT WITHIN REACH. WILL ENDORSE TO NEXT SHIFT FOR FELIBERTO.
[2018-02-15 08:00] VITALS: BP 126/75
[2018-02-15 08:08] LABS: *BASOS 0 % (Not Estab.); *EOS 2 % (Not Estab.); *EOS, ABSOLUTE 0.1 x10E3/uL (0.0-0.4); *HCT 42.4 % (37.5-51.0); *HGB 13.9 g/dL (13.0-17.7); *IMMATURE GRANULOCYTES 0 % (Not Estab.); *LYMPHOCYTES 28 % (Not Estab.); *LYMPHS, ABSOLUTE 1.6 x10E3/uL (0.7-3.1); *MCH 30.3 pg (26.6-33.0); *MCHC 32.8 g/dL (31.5-35.7); *MCV 93 fL (79-97); *MONOCYTES 7 % (Not Estab.); *MONOS, ABSOLUTE 0.4 x10E3/uL (0.1-0.9); *NEUTROPHILS 63 % (Not Estab.); *NEUTROPHILS, ABSOLUTE 3.7 x10E3/uL (1.4-7.0); *PLT 213 x10E3/uL (150-379); *RBC 4.58 x10E6/uL (4.14-5.80); *RDW 13.6 % (12.3-15.4)
--- NOTE | 2018-02-15 08:30 | NUR ---
MS RN NOTES PATIENT SEEN AND EXAMINED BY DR. ARAUJO. VERIFIED NPO ORDER WITH DR. ARAUJO, WITH CLARIFICATION ORDER FOR PATIENT TO BE NPO EXCEPT MEDICATIONS. ORDER NOTED AND CARRIED OUT. PATIENT AWARE AND VERBALIZED UNDERSTANDING. WILL CONTINUE TO MONITOR
[2018-02-15] MEDS: RALTEGRAVIR POTASSIUM 400 MG TABLET PO SCH ×2 (08:34→17:00)
[2018-02-15] MEDS: ASPIRIN 81 MG TAB.CHEW PO SCH (08:34)
[2018-02-15] MEDS: RITONAVIR 100 MG CAPSULE PO SCH ×2 (08:34→17:00)
[2018-02-15] MEDS: METOPROLOL TARTRATE 25 MG TABLET PO SCH ×2 (08:35→21:57)
--- NOTE | 2018-02-15 11:53 | NUR ---
MS RN NOTES PATIENT FOR TRANSFER TO [facility] FOR CARDIAC CATHETERIZATION. REPORT GIVEN TO DAYANA PARKINSON. DISCHARGE INSTRUCTIONS GIVEN TO PATIENT AND VERBALIZED UNDERSTANDING. ALL BELONGINGS COMPLETE UPON DISCHARGE, NO REPORT OF MISSING INVENTORY. PATIENT LEFT UNIT AT 1150 VIA GURNEY IN STABLE CONDITION. NO CHANGES IN LOC NOTED. PATIENT AFEBRILE, SKIN DRY AND WARM TO TOUCH. PATIENT CALM AND RELAXED. NO NEW SKIN BREAKDOWN UPON DISCHARGE. MD AWARE OF TRANSFER.
[2018-02-15 14:22] LABS: *% CD 4 POS. LYMPH 38.7 % (30.8-58.5); *% CD 8 POS. LYMPH 29.5 % (12.0-35.5); *ABSOLUTE CD 4 HELPER 619 /uL (359-1519); *ABSOLUTE CD 8 SUPPRESSOR 472 /uL (109-897); *CD4/CD8 RATIO 1.31 (0.92-3.72)
--- NOTE | 2018-02-15 18:03 | NUR ---
MS RN NOTES RECEIVED CALL FROM [facility], SPOKE WITH ADRIANNE PARKINSON AND RECEIVED REPORT REGARDING PATIENT. PER ADRIANNE, PATIENT HAD A HEART CATHETERIZATION, DONE BY DR. GARZA. PATIENT TO BE ON BEDREST UNTIL 2129, ALSO TO RESUME IV NS AT 75CC/HR, AND TO START JAMES DIET WHEN PATIENT RETURNS TO PATIENT.
--- NOTE | 2018-02-15 18:58 | NUR ---
MS RN NOTES PATIENT REMAINS OUT OF UNIT. WILL REPORT TO INCOMING SHIFT FOR FELIBERTO.
--- NOTE | 2018-02-15 19:40 | NUR ---
RN INITIAL NOTES Patient came back from [facility] via gurney. Alert, oriented x 4. Breathing even and unlabored. Patient informed that he is for bedrest until 21:30. Patient aware. Stated that he wanted to go home. Vital signs stable. Report taken from ambulance company. Safety measures in place. Call hannah within easy reach. Bed in low locked position. Will monitor accordingly
[2018-02-15 20:00] VITALS: BP 121/75
[2018-02-15] MEDS: ATORVASTATIN 10 MG TABLET PO SCH (21:56)
[2018-02-15 21:57] VITALS: BP 121/75
--- NOTE | 2018-02-15 22:20 | NUR ---
EMPLOYMENT PROGRAMS ANALYST NOTES Patient's IV and ID band removed. Discharge instructions provided. Patient left in stable condition. Accompanied by the CAREER AND TECHNOLOGY EDUCATION TEACHER to the parking structure.
[2018-02-16 19:09] LABS: *HIV-1 RNA BY PCR <20 copies/mL (.)
== END 2018-02-15 22:10 | disposition home or self-care (01) | DRG 286 ==
LOC: ER 06:23 → TELE 08:55 → MED 02-14 10:05
PROVIDERS: ADMIT Family Medicine; ATTEND Family Medicine
PROC: 4A023N7 Measurement of Cardiac Sampling and Pressure, Left Heart, Percutaneous Approach (ICD-10-PCS; principal; 2018-02-15)
PROC: B211YZZ Fluoroscopy of Multiple Coronary Arteries using Other Contrast (ICD-10-PCS; principal; 2018-02-15)
DX: I25.10 Atherosclerotic heart disease of native coronary artery without angina pectoris (principal); N17.0 Acute kidney failure with tubular necrosis; Z66 Do not resuscitate; I16.0 Hypertensive urgency; Z87.891 Personal history of nicotine dependence; Z88.2 Allergy status to sulfonamides
CPT/HCPCS: 36415; 71045-TC; 75574; 80048-TC; 80061-TC; 80305; 82550-TC; 82553-TC; 83735-TC; 84100-TC; 84484-TC; 85025-TC; 85730-TC; 86360; 86850-TC; 87081-TC; 87536; 93307-TC; A4606; G0480; J7030; J7050; Q9967; Z7610

== ENCOUNTER 2018-02-21 13:16 | Emergency (ER) | payer BC ==
[~2018-02-21] VITALS: Ht 177.8 cm; Wt 74.8 kg
[~2018-02-21 13:16] MED LIST changes: -MELO-107 PO
[2018-02-21 13:25] VITALS: BP 135/81
--- NOTE | 2018-02-21 13:30 | NUR ---
CALLED AND PAGED OFFICE OF DR ARAUJO FOR CONSULT.
--- NOTE | 2018-02-21 13:31 | NUR ---
CALLED AND PAGED DR GARZA.
== END 2018-02-21 13:44 | disposition home or self-care (01) ==
LOC: ER 13:17
DX: I97.630 Postprocedural hematoma of a circulatory system organ or structure following a cardiac catheterization (principal); I10 Essential (primary) hypertension; F15.10 Other stimulant abuse, uncomplicated; Z98.890 Other specified postprocedural states; Z88.2 Allergy status to sulfonamides; Z79.899 Other long term (current) drug therapy
CPT/HCPCS: 99282; A4606; Z7610

== ENCOUNTER 2022-05-04 13:36 | Emergency (ER) | payer BC ==
[~2022-05-04] VITALS: Ht 180.3 cm; Wt 93.0 kg
--- NOTE | 2022-05-04 13:49 | NUR ---
CHRONIC LOWER BACK PAIN, FOR THE PAST 2 DAYS PAIN R/T RLE. DENIES ANY TRAUMA. PAIN IS 5/10 WHILE LAYING DOWN BUT WHEN AMBULATING IT IS 7/10 PER PT. AWAITING MD ORDERS.
[2022-05-04] MEDS ORDERED: HYDROCODONE/APAP 5/325MG TABLET PO ONE (14:00)
[2022-05-04] MEDS ORDERED: predniSONE 20 MG TABLET PO ONE (14:00)
[2022-05-04] MEDS ORDERED: HYDROCODONE/APAP 5/325MG TABLET ONE (14:11)
[2022-05-04] MEDS ORDERED: predniSONE 20 MG TABLET ONE (14:11)
[2022-05-04] MEDS ORDERED: CYCL10TA9 PO (15:01)
[2022-05-04 15:07] VITALS: BP 132/64
--- NOTE | 2022-05-04 15:07 | NUR ---
Patient discharged to home in stable condition. Written and verbal after care instructions given. Patient verbalizes understanding of instruction.
[2022-05-04] MEDS ORDERED: PRED20TA PO (15:28)
== END 2022-05-04 15:29 | disposition home or self-care (01) ==
LOC: ER 13:40
DX: M54.41 Lumbago with sciatica, right side (principal); M47.816 Spondylosis without myelopathy or radiculopathy, lumbar region; I10 Essential (primary) hypertension; F15.10 Other stimulant abuse, uncomplicated; Z98.890 Other specified postprocedural states; Z88.2 Allergy status to sulfonamides; Z79.899 Other long term (current) drug therapy
CPT/HCPCS: 99283; 72100; J7512

== ENCOUNTER 2022-06-09 06:44 | Emergency (ER) | payer BC ==
[~2022-06-09] VITALS: Ht 180.3 cm; Wt 90.7 kg
[~2022-06-09 06:44] MED LIST changes: +CYCL10TA9 PO; +PRED20TA PO
[2022-06-09 08:18] VITALS: BP 154/90
--- NOTE | 2022-06-09 08:24 | NUR ---
dr mendoza at bedside for eval
--- NOTE | 2022-06-09 08:30 | NUR ---
HAZARDOUS MATERIALS WASTE TECHNICIAN AT BEDSIDE FOR XRAY
--- NOTE | 2022-06-09 10:10 | NUR ---
followed up result of xray w/ radiology
--- NOTE | 2022-06-09 10:15 | NUR ---
"no evidence of acute fracture" per xray result; dr mendoza made aware.
--- NOTE | 2022-06-09 10:22 | NUR ---
Patient discharged to home in stable condition. Written and verbal after care instructions given. Patient verbalizes understanding of instruction.
== END 2022-06-09 10:23 | disposition home or self-care (01) ==
LOC: ER 06:44
DX: M79.662 Pain in left lower leg (principal); I10 Essential (primary) hypertension; Z88.2 Allergy status to sulfonamides; Z79.899 Other long term (current) drug therapy
CPT/HCPCS: 73590-TC